=== PATIENT | male | born 1985 ===

== ENCOUNTER 2016-12-21 20:28 | Emergency (ER) | payer MEDICAID ==
[2016-12-21] MEDS ORDERED: Albuterol-Ipratrop 3 mg / 0.5 (3 ml) UD ONE (21:27)
[2016-12-21] MEDS ORDERED: Albuterol-Ipratrop 3 mg / 0.5 (3 ml) UD INH STA (21:31)
--- NOTE | 2016-12-21 21:53 | C.PDOC ---
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 Original Note: History Of Present Illness 31 year old patient presents to the ED complaining of intermittent cough for the past 3 weeks. Patient states he took OTC without any relief. Patient also complains of shortness of breath and chest tightness that began today, which prompted this visit. Patient denies fever, ear pain, nausea or vomiting. Time Seen by Provider: 12/21/16 21:01 Chief Complaint (Nursing): Cough, Cold, Congestion History Per: Patient History/Exam Limitations: no limitations Onset/Duration Of Symptoms: Intermittent Episodes (3 weeks) Current Symptoms Are (Timing): Still Present Location Of Pain: Other (chest tightness) Sick Contacts (Context): None Associated Symptoms: Cough Ear Symptoms: Bilateral: None Severity: Mild Pain Scale Rating Of: 3 Recent travel outside of the [place]: No Past Medical History Reviewed: Historical Data, Nursing Documentation, Vital Signs Vital Signs: Last Vital Signs Temp 98.7 F 12/21/16 20:52 Pulse 74 12/21/16 20:52 Resp 16 12/21/16 20:52 BP 123/77 12/21/16 20:52 Pulse Ox 96 12/21/16 21:58 - [facility] Procedures LINEAR REP LID LACER (06/02/14) TETANUS TOXOID ADMINIST (06/02/14) Family History: States: Hypertension - Social History Hx Tobacco Use: No Hx Alcohol Use: No Hx Substance Use: No - Immunization History Hx Tetanus Toxoid Vaccination: Yes (06/02/2014) Hx Influenza Vaccination: Yes Hx Pneumococcal Vaccination: No Review Of Systems Except As Marked, All Systems Reviewed And Found Negative. Constitutional: Negative for: Fever ENT: Negative for: Ear Pain Respiratory: Positive for: Cough, Shortness of Breath, Other (chest tightness) Gastrointestinal: Negative for: Nausea, Vomiting Physical Exam - Physical Exam Appears: Non-toxic, No Acute Distress Skin: Warm, Dry Head: Atraumatic, Normacephalic Eye(s): bilateral: Normal Inspection, EOMI Ear(s): Bilateral: Normal Nose: Normal Oral Mucosa: Moist Throat: Normal, No Erythema, No Exudate Neck: Normal ROM, Supple Chest: Symmetrical Cardiovascular: Rhythm Regular Respiratory: Decreased Breath Sounds (minimal), No Rales, No Rhonchi, Wheezing ( diffuse, expiratory) Back: Normal Inspection Neurological/Psych: Oriented x3, Normal Speech, Normal Cognition Gait: Steady ED Course And Treatment O2 Sat by Pulse Oximetry: 96 (room air) Pulse Ox Interpretation: Normal - Radiology CXR: Interpreted by Me, Viewed By Me CXR Interpretation: Yes: No Acute Disease. No: Infiltrates Progress Note: Plan: Chest x-ray, Duoneb, Prednisone. Pt sx improved after duonebs. Pt will follow up with PMD. RX given Reevaluation Time: 22:35 Reassessment Condition: Improved Disposition Counseled Patient/Family Regarding: Diagnosis, Need For Followup, Rx Given - Disposition Disposition: HOME/ ROUTINE Disposition Time: 22:43 Condition: STABLE Additional Instructions: Please increase PO fluids Take meds as directed Return to ER if worse Prescriptions: Albuterol HFA [Ventolin HFA 90 mcg/actuation (8 g)] 2 puff IH [id number] #1 inhaler Azithromycin [Zithromax] 250 mg PO DAILY #6 tab Benzonatate [Tessalon Perles] 100 mg PO TID #20 sgl predniSONE [Prednisone] 40 mg PO DAILY #10 tab Instructions: Acute Bronchitis (ED) Forms: Work Excuse - Clinical Impression Clinical Impression: Bronchitis - 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 - Scribe Statement The provider has reviewed the documentation as recorded by the Scribe Rupa Centeno All medical record entries made by the Scribe were at my direction and personally dictated by me. I have reviewed the chart and agree that the record accurately reflects my personal performance of the history, physical exam, medical decision making, and the department course for this patient. I have also personally directed, reviewed, and agree with the discharge instructions and disposition.
[2016-12-21 23:02] VITALS: BP 120/70; PULSE 90; RESP 18; TEMP 97.8; O2SAT 97
--- NOTE | 2016-12-22 10:37 | RAD ---
HISTORY: cough, wheezes COMPARISON: No prior. TECHNIQUE: Chest PA and lateral FINDINGS: LUNGS: No active pulmonary disease. PLEURA: No significant pleural effusion identified. No pneumothorax apparent. CARDIOVASCULAR: Normal. OSSEOUS STRUCTURES: No significant abnormalities. VISUALIZED UPPER ABDOMEN: Normal. OTHER FINDINGS: None. IMPRESSION: No active disease.
== END 2016-12-21 23:02 | disposition home or self-care (01) ==
LOC: C.ER 20:28
DX: J40 Bronchitis, not specified as acute or chronic (principal)

== ENCOUNTER 2017-04-11 20:05 | Emergency (ER) | payer MEDICAID ==
[2017-04-11 20:17] VITALS: BP 126/84; PULSE 59; RESP 16; TEMP 98.5; O2SAT 97
[2017-04-11] MEDS ORDERED: Lidocaine 5% Patch TD STA (20:58)
[2017-04-11] MEDS ORDERED: Lidocaine 5% Patch TD ONE (21:06)
--- NOTE | 2017-04-11 21:41 | C.PDOC ---
History Of Present Illness 31 year old male who presents to the ER with a complaint of pain to the left mid back for the past 3 days that worsens with movement and when bending down. Patient states he was doing heavy lifting at home when he felt a sharp pain to his back. Denies weakness, numbness, recent trauma, abdominal pain, or bladder/ bowel incontinence. Time Seen by Provider: 04/11/17 20:23 Chief Complaint (Nursing): Back Pain History Per: Patient History/Exam Limitations: no limitations Onset/Duration Of Symptoms: Days Current Symptoms Are (Timing): Still Present Quality Of Discomfort: Sharp Previous Symptoms: None Associated Symptoms: None Exacerbating Factor(s): Movement, Other (Bending) Recent travel outside of the [place]: No Past Medical History Reviewed: Historical Data, Nursing Documentation, Vital Signs Vital Signs: Last Vital Signs Temp 98.5 F 04/11/17 20:11 Pulse 59 L 04/11/17 20:11 Resp 16 04/11/17 20:11 BP 126/84 04/11/17 20:11 Pulse Ox 97 04/11/17 22:47 - Medical History PMH: No Chronic Diseases Surgical History: No Surg Hx - [facility] Procedures LINEAR REP LID LACER (06/02/14) TETANUS TOXOID ADMINIST (06/02/14) Family History: States: Hypertension - Social History Hx Tobacco Use: No Hx Alcohol Use: No Hx Substance Use: No - Immunization History Hx Tetanus Toxoid Vaccination: Yes (06/02/2014) Hx Influenza Vaccination: Yes Hx Pneumococcal Vaccination: No Review Of Systems Constitutional: Negative for: Fever, Chills Gastrointestinal: Negative for: Abdominal Pain Genitourinary: Negative for: Dysuria, Incontinence, Hematuria Musculoskeletal: Positive for: Back Pain Neurological: Negative for: Weakness, Numbness Physical Exam - Physical Exam Appears: Non-toxic Skin: Normal Color, Warm, Dry, No Rash Head: Atraumatic, Normacephalic Eye(s): bilateral: Normal Inspection, PERRL, EOMI Oral Mucosa: Moist Neck: Normal ROM, No Midline Cervical Tenderness, Paracervical Tenderness (Left) Chest: Symmetrical, No Tenderness Cardiovascular: Rhythm Regular Respiratory: Normal Breath Sounds Gastrointestinal/Abdominal: Soft, No Tenderness Back: No Vertebral Tenderness, Paraspinal Tenderness (Left thoracic) Extremity: Normal ROM (x4), No Swelling Neurological/Psych: Oriented x3, Normal Speech, Normal Cognition, Normal Motor Gait: Steady ED Course And Treatment O2 Sat by Pulse Oximetry: 97 (Room air) Pulse Ox Interpretation: Normal Medical Decision Making Medical Decision Making: Plan: * Flexeril * Toradol * Lidoderm Patient is resting comfortably, is no longer having back pain, no bony tenderness, no numbness, no weakness, or abdominal pain. Patient is ambulatory in the emergency department with no signs of discomfort. Patient was advised to follow up with their physician in 1-2 days. Disposition - Disposition Referrals: Hardeep Martinez MD [Medical Doctor] - Disposition: HOME/ ROUTINE Disposition Time: 21:37 Condition: GOOD Additional Instructions: Follow up with the medical doctor/clinic within 1-2 days. return if worsened. Prescriptions: Cyclobenzaprine [Flexeril] 5 mg PO TID #21 tab Lidocaine 5% [Lidoderm] 1 patch TOP DAILY #7 patch Naproxen [Naprosyn] 500 mg PO BID #20 tab Instructions: Muscle Spasm (ED) Forms: [employer] (Czech) - Clinical Impression Clinical Impression: Low back strain - Scribe Statement The provider has reviewed the documentation as recorded by the Scribe Baldev Stevens All medical record entries made by the Scribe were at my direction and personally dictated by me. I have reviewed the chart and agree that the record accurately reflects my personal performance of the history, physical exam, medical decision making, and the department course for this patient. I have also personally directed, reviewed, and agree with the discharge instructions and disposition.
== END 2017-04-11 21:46 | disposition home or self-care (01) ==
LOC: C.ER 20:05
DX: S39.012A Strain of muscle, fascia and tendon of lower back, initial encounter (principal); X50.0XXA Overexertion from strenuous movement or load, initial encounter; Y92.009 Unspecified place in unspecified non-institutional (private) residence as the place of occurrence of the external cause
CPT/HCPCS: 96372; 99283; J1885